=== PATIENT | female | born 1975 | race Two or more races ===

== ENCOUNTER 2020-09-18 14:22 | Emergency (ER) | payer MEDICAID, OTHER ==
[~2020-09-18] VITALS: Ht 160 cm; Wt 81.6 kg
[2020-09-18 14:30] VITALS: BP 153/92
[2020-09-18] MEDS ORDERED: DexAMETHasone SOD PHOS 10MG/1ML VIAL INJ IM ONE (16:00)
[2020-09-18] MEDS ORDERED: cefTRIAXone SOD 1,000 MG VL IM ONE (16:00)
== END 2020-09-18 17:18 | disposition home or self-care (01) ==
LOC: ER 14:22
DX: R05 Cough (principal); R06.02 Shortness of breath; Z20.828 Contact with and (suspected) exposure to other viral communicable diseases
CPT/HCPCS: 36415; 71045; 87426; 99284; C9803; U0003